=== PATIENT | female | born 1950 | race Caucasian/White ===

== ENCOUNTER 2016-05-22 08:28 | Emergency (ER) | payer OTHER, MEDICARE ==
--- NOTE | 2016-05-22 08:47 | PDOC ---
History of Present Illness - General Chief Complaint: Constipation Stated Complaint: CONSTIPATION Time Seen by Provider: 05/22/16 08:41 History Source: Patient, Old Records Exam Limitations: No Limitations - History of Present Illness Initial Comments: 05/22/16 08:45 65-year-old female with history of COPD, hypertension and recent admission to [facility] for COPD exacerbation who presents the emergency department with constipation 4 days. The patient states that she has had constipation in the past and has taken Miracel and other fiber dietary supplements with success but this has not been successful for her at this time. The patient had a small bowel movement 2 days ago. The patient complains of pain in the rectal area and states that the stool is at the anal verge but she cannot push the stool out. The patient denies abdominal pain, nausea or vomiting. All other review of systems are negative. She denies fevers, chills, complaints. Past History - Travel Traveled outside of the country in the last 30 days: No Close contact w/someone who was outside of country & ill: No - Past Medical History Allergies/Adverse Reactions: Allergies Allergy/AdvReac Type Severity Reaction Status Date / Time amlodipine Allergy Severe Difficulty Verified 05/22/16 08:45 Breathing cortisone Allergy Severe Difficulty Verified 05/22/16 08:45 Breathing levofloxacin [From Levaquin] Allergy Intermediate Rash Verified 05/22/16 08:45 Penicillins Allergy Intermediate Rash Verified 05/22/16 08:45 aspirin AdvReac Severe Verified 05/22/16 08:45 Home Medications: Ambulatory Orders Budesonide [Pulmicort Flexhaler] 90 mcg IH BID 02/25/15 Hydrochlorothiazide [Hctz -] 25 mg PO DAILY 02/25/15 Methylprednisolone [Medrol Dose Alessandro] 4 mg PO ASDIR 02/25/15 Valsartan [Diovan] 320 mg PO DAILY 02/25/15 Zafirlukast [Accolate] 20 mg PO BID 02/25/15 Anemia: Yes (THALLASEMIA MINOR) Asthma: Yes GI Disorders: Yes (GERD) HTN: Yes - Surgical History Cholecystectomy: Yes (1968) - Psycho/Social/Smoking Cessation Hx Anxiety: Yes Suicidal Ideation: No Smoking History: Unknown if ever smoked If you are a former smoker, when did you quit?: 25 YEARS AGO Hx Alcohol Use: Yes (SOCIAL) Drug/Substance Use Hx: No Substance Use Type: None Review of Systems - Review of Systems Able to Perform ROS?: Yes Is the patient limited [place]an proficient: No Constitutional: No: Symptoms Reported, See HPI, Chills, Diaphoresis, Fever, Loss of Appetite, Malaise, Night Sweats, Weakness, Weight Stable, Unintentional Wgt. Loss, Unexplained wgt Loss, Other HEENTM: No: Symptoms Reported, See HPI, Eye Pain, Blurred Vision, Tearing, Recent change in vision, Double Vision, Cataracts, Ear Pain, Ocular Prothesis, Ear Discharge, Nose Pain, Nose Congestion, Tinnitus, Nose Bleeding, Hearing Loss , Throat Pain, Throat Swelling, Mouth Pain, Dental Problems, Difficulty Swallowing, Mouth Swelling, Other Respiratory: Yes: Cough, Wheezing Cardiac (ROS): No: Symptoms Reported, See HPI, Chest Pain, Edema, Irregular Heart Rate, Lightheadedness, Palpitations, Syncope, Chest Tightness, Other ABD/GI: Yes: Constipated. No: Abdominal Distended, Abd. Pain w/ defecation : No: Symptoms Reported, See HPI, Burning, Dysuria, Discharge, Frequency, Flank Pain, Hematuria, Incontinence, Pain, Urgency, Lesions, Other Musculoskeletal: No: Symptoms Reported, See HPI, Back Pain, Gout, Joint Pain, Joint Swelling, Muscle Pain, Muscle Weakness, Neck Pain, Joint Stiffness, Other Integumentary: No: Symptoms Reported, See HPI, Bruising, Change in Color, Change in Hair/Nails, Dryness, Erythema, Flushing, Lesions, Lumps, Pallor, Pruritus, Rash, Sweating, Other *Physical Exam - Physical Exam Comments: 05/22/16 08:42 GENERAL: Well developed, well nourished. Awake and alert. Mild distress. NECK: Supple. Full ROM. No JVD. No lymphadenopathy. CARDIOVASCULAR: Regular rate and rhythm. No murmurs, rubs, or gallops. Distal pulses are 2+ and symmetric. PULMONARY: No evidence of respiratory distress. There is good air entry with by basilar expiratory wheezes. ABDOMINAL: Soft. Non-tender. Non-distended. No rebound or guarding. No organomegaly. Normoactive bowel sounds. MUSCULOSKELETAL Normal range of motion at all joints. No bony deformities or tenderness. No CVA tenderness. EXTREMITIES: No cyanosis. No clubbing. No edema. No calf tenderness. RECTAL: There is brown stool at the anal verge that is soft. The stool is heme negative. SKIN: Warm and dry. Normal capillary refill. No rashes. No jaundice. NEUROLOGICAL: Alert, awake, appropriate. Cranial nerves 2-12 intact. Grossly non-focal exam. PSYCHIATRIC: Cooperative. Good eye contact. Appropriate mood and affect. Medical Decision Making - Medical Decision Making 05/22/16 08:43 65-year-old female with history of COPD, hypertension who presents to the emergency department with constipation 4 days and fecal impaction. Plan: 1. Fleets enema 2. Will attempt manual disimpaction 3. Pain management 4. Dietary counseling 5. Observe and reevaluate 05/22/16 10:37 Addendum: The patient received 2 fleets enemas with a significant bowel movement in the emergency department and she is feeling improved. We'll discharge the patient home. I have given the patient dietary counseling and have instructed her to increase her dietary fiber as well as take Miracil as it has worked for her in the past. I have also instructed her to follow-up with her decal decorator that just within one week. I've also instructed the patient to return to the emergency department if her symptoms persist, worsen, or new symptoms arise. *DC/Admit/Observation/Transfer Diagnosis at time of Disposition: Constipation - Discharge Dispostion Disposition: HOME Condition at time of disposition: Stable Admit: No - Patient Instructions Printed Discharge Instructions: DI for Constipation, Increased Dietary Fiber May Improve Constipation Conditions With Pelvic Jake Additional Instructions: Follow up with your decal decorator within one week. Increase the amount of dietary fiber in your food regimen: Fruits (including aplles, pears and prunes) , and other [id number] fiber supplements. Also increase the amount of water that you or drinking in order to keep well-hydrated. Return to the emergency department if your symptoms persist, worsen, or new symptoms arise.
[2016-05-22 08:52] VITALS: BP 161/94; PULSE 94; TEMP 97.8; BMI 32.8
== END 2016-05-22 10:53 | disposition home or self-care (01) ==
LOC: FER 08:28
DX: K59.00 Constipation, unspecified (principal); J44.9 Chronic obstructive pulmonary disease, unspecified; I10 Essential (primary) hypertension; D56.3 Thalassemia minor; J45.909 Unspecified asthma, uncomplicated; K21.9 Gastro-esophageal reflux disease without esophagitis; Z87.891 Personal history of nicotine dependence
CPT/HCPCS: 99282-25

== ENCOUNTER 2018-07-19 22:17 | Observation (INO) | payer OTHER, MEDICARE ==
--- NOTE | 2018-07-19 22:45 | PDOC ---
History of Present Illness - General Chief Complaint: Lightheaded Stated Complaint: DIZZY Time Seen by Provider: 07/19/18 22:42 History Source: Patient Exam Limitations: No Limitations - History of Present Illness Initial Comments: 07/19/18 23:51 chest tightness x 4 hours, "elephant paw on my chest" dizziness, at rest, felt "uncoordinated", has had this before but not this severe, resolved spontaneously Timing/Duration: 4-6 hours Severity: moderate Modifying Factors: worse with: medication, movement, rest Associated Symptoms: reports: chest pain, malaise. denies: cough, diaphoresis, fever/chills, headaches, loss of appetite, nausea/vomiting Past History - Past Medical History Allergies/Adverse Reactions: Allergies Allergy/AdvReac Type Severity Reaction Status Date / Time amlodipine Allergy Severe Difficulty Verified 07/19/18 22:30 Breathing cortisone Allergy Severe Difficulty Verified 07/19/18 22:30 Breathing levofloxacin [From Levaquin] Allergy Intermediate Rash Verified 07/19/18 22:30 Penicillins Allergy Intermediate Rash Verified 07/19/18 22:30 aspirin AdvReac Severe Verified 07/19/18 22:30 CONTRAST DYE Allergy Uncoded 07/19/18 22:30 Home Medications: Ambulatory Orders Budesonide [Pulmicort Flexhaler] 90 mcg IH BID 02/25/15 Hydrochlorothiazide [Hctz -] 25 mg PO DAILY 02/25/15 Valsartan [Diovan] 320 mg PO DAILY 02/25/15 Zafirlukast [Accolate] 20 mg PO BID 02/25/15 Anemia: Yes (THALLASEMIA MINOR) Asthma: Yes GI Disorders: Yes (GERD) HTN: Yes Comment:: 07/19/18 23:53 relasping/ remitting MS, off meds, baseline symptomotology: unsteadiness - Surgical History Cholecystectomy: Yes (1968) - Suicide/Smoking/Psychosocial Hx Smoking History: Unknown if ever smoked Have you smoked in the past 12 months: No If you are a former smoker, when did you quit?: 25 YEARS AGO Hx Alcohol Use: Yes (SOCIAL) Drug/Substance Use Hx: No Substance Use Type: None Review of Systems - Review of Systems All Other Systems: Reviewed and Negative *Physical Exam - Physical Exam General Appearance: Yes: Nourished, Appropriately Dressed HEENT: positive: EOMI, COREY, Normal Voice. negative: Scleral Icterus (R), Scleral Icterus (L) Neck: negative: Tender, Lymphadenopathy (R), Lymphadenopathy (L), Rigidity Respiratory/Chest: positive: Lungs Clear, Normal Breath Sounds. negative: Respiratory Distress, Wheezing Cardiovascular: positive: Regular Rhythm. negative: Murmur Gastrointestinal/Abdominal: positive: Normal Bowel Sounds. negative: Tenderness Lymphatic: negative: Adenopathy Musculoskeletal: positive: Normal Inspection Extremity: positive: Normal Capillary Refill, Normal Inspection Neurologic: positive: account installation specialist II-XII NML intact, Fully Oriented, Alert, Normal Mood/ Affect, Normal Response, Motor Strength 5/5, Respond to painful stimul, Responsive, Other (nl strength and coordination in 4 ext). negative: Abnormal Cranial NS, Facial Droop, Numbness, Sensory Deficit ED Treatment Course - LABORATORY CBC & Chemistry Diagram: 07/19/18 11:05 07/19/18 11:05 Medical Decision Making - Medical Decision Making 07/19/18 23:21 sinus at 58, nl axis, nl intervals, no ischemic findings 07/19/18 23:56 cxr: jose, as read by me head CT: wet read - a/p chest tightness: heart 4, ekg, troponin ok, admit for fly and cardiac risk stratification dizziness: concern for posterior circulation TIA, head CT -; inpt MRi *DC/Admit/Observation/Transfer Diagnosis at time of Disposition: ACS (acute coronary syndrome), Dizziness - Discharge Dispostion Condition at time of disposition: Stable Decision to Admit order: Yes - Referrals - Patient Instructions - Post Discharge Activity
[2018-07-19 23:18] LABS: BASO % 1.3 % (0-2.0); HEMATOCRIT 33.8 % (32.4-45.2); HEMOGLOBIN 10.4 GM/dl (10.7-15.3); MCHC 30.7 g/dl (32.0-36.0); MEAN CELL VOLUME 68.4 fl (80-96); MEAN PLT VOLUME 8.6 fl (7.5-11.1); MONO % 8.3 % (3.8-10.2); NEUT % 45.4 % (42.8-82.8); PLATELET COUNT 344 K/MM3 (134-434); RBC 4.94 M/mm3 (3.60-5.2); RDW 16.6 % (11.6-15.6)
[2018-07-19 23:32] LABS: ADD RBC MORPHOLOGY YES
[2018-07-19 23:33] LABS: ANISOCYTOSIS 1+
[2018-07-19 23:37] LABS: ALBUMIN 3.7 g/dl (3.4-5.0); ALK PHOS 50 U/L (45-117); ANION GAP 12 MMOL/L (8-16); BILIRUBIN,TOTAL 0.8 mg/dl (0.2-1); BLOOD UREA NITROGEN 18 mg/dl (7-18); CHLORIDE 100 mmol/L (98-107); CO2 24 mmol/L (21-32); CREATININE 0.7 mg/dl (0.55-1.3); GLUCOSE,RANDOM 109 mg/dl (74-106); POTASSIUM 3.5 mmol/L (3.5-5.1); SGOT/AST 23 U/L (15-37); SGPT/ALT 18 U/L (13-61); SODIUM 136 mmol/L (136-145); TOT PROT 6.4 g/dl (6.4-8.2)
[2018-07-20] MEDS ORDERED: ALBUTEROL SO4 8 GM HFA INHALER IH PRN (00:20)
[2018-07-20 01:16] VITALS: BMI 33.6
[2018-07-20 08:29] LABS: INR 1.05 (0.82-1.09); PROTHROMBIN TIME (PATIENT) 11.7 SEC (10.2-13.0)
[2018-07-20 08:30] LABS: BASO % 0.5 % (0-2.0); EOS % 4.1 % (0-4.5); HEMATOCRIT 32.2 % (32.4-45.2); HEMOGLOBIN 9.9 GM/dl (10.7-15.3); LYMPH % 40.3 % (8-40); MCH 21.6 pg (25.7-33.7); MCHC 30.9 g/dl (32.0-36.0); MEAN CELL VOLUME 69.8 fl (80-96); MEAN PLT VOLUME 8.7 fl (7.5-11.1); MONO % 8.2 % (3.8-10.2); NEUT % 46.9 % (42.8-82.8); PLATELET COUNT 315 K/MM3 (134-434); RBC 4.62 M/mm3 (3.60-5.2); RDW 15.5 % (11.6-15.6); WHITE BLOOD COUNT 7.5 K/mm3 (4.0-10.8)
[2018-07-20 08:40] LABS: ANION GAP 10 MMOL/L (8-16); BLOOD UREA NITROGEN 16 mg/dl (7-18); CALCIUM 8.7 mg/dl (8.5-10); CHLORIDE 100 mmol/L (98-107); CO2 26 mmol/L (21-32); CREATININE 0.6 mg/dl (0.55-1.3); GLUCOSE,RANDOM 99 mg/dl (74-106); MAGNESIUM 2.1 mg/dL (1.8-2.4); POTASSIUM 3.7 mmol/L (3.5-5.1); SODIUM 136 mmol/L (136-145)
--- NOTE | 2018-07-20 08:54 | HP ---
CHIEF COMPLAINT: Chest discomfort and vertigo PCP: Dr. Radha Wilson [facility] Neuro: Dr. Meir Cruz [facility] HISTORY OF PRESENT ILLNESS: 67 year-old female with a PMH significant for HTN, asthma, thalassemia, multiple sclerosis relapsing/remitting on no medication, and GERD. Patient reports a stressful time in her life, in process of selling home, yesterday was a scheduled open house. Awoke with a feeling of chest tightness. Patient was able to carry out her daily activities. Patient changed her chronic asthma inhaler about 2 weeks ago and has noticed more frequent "bronchospasms" than usual. There was no associated SOB, ROA, diaphoresis, or presyncope with the chest tightness. In addition, last night, after the open house, patient was watching TV with her when she developed room-spinning vertigo. Patient' s last episode of vertigo was 20 years ago which was associated with her MS. Patient's activated EMS. Patient states the vertigo continued throughout her time in the ED, and began to resolve when she was admitted to the floor. The vertigo is completely resolved this morning. Patient last saw her neurologist, Dr. Meir Cruz, 6 months ago and has an upcoming appointment. ER course was notable for: (1) BP 175/69 (2) Trop neg x 1 Recent Travel: No PAST MEDICAL HISTORY: Hypertension Multiple sclerosis, relapsing remitting Asthma Thalassemia GERD PAST SURGICAL HISTORY: Cholecystectomy Social History: Smoking: quit 25 years ago Alcohol: social Drugs: no Family History: Allergies amlodipine Allergy (Severe, Verified 07/19/18 22:30) Difficulty Breathing DELAYED REACTION cortisone Allergy (Severe, Verified 07/19/18 22:30) Difficulty Breathing levofloxacin [From Levaquin] Allergy (Intermediate, Verified 07/19/18 22:30) Rash Penicillins Allergy (Intermediate, Verified 07/19/18 22:30) Rash aspirin Adverse Reaction (Severe, Verified 07/19/18 22:30) WEAKNESS CONTRAST DYE Allergy (Uncoded 07/19/18 22:30) HOME MEDICATIONS: Home Medications Medication Instructions Recorded Hydrochlorothiazide [Hctz -] 25 mg PO DAILY 02/25/15 Valsartan [Diovan] 320 mg PO DAILY 02/25/15 Zafirlukast [Accolate] 20 mg PO BID 02/25/15 Fluticasone Propionate [Flovent 250 mcg IH BID 07/20/18 Diskus] REVIEW OF SYSTEMS CONSTITUTIONAL: Absent: fever, chills, diaphoresis, generalized weakness, malaise, loss of appetite, weight change HEENT: Absent: rhinorrhea, nasal congestion, throat pain, throat swelling, difficulty swallowing, mouth swelling, ear pain, eye pain, visual changes CARDIOVASCULAR: Absent: chest pain, syncope, palpitations, irregular heart rate, lightheadedness , peripheral edema RESPIRATORY: +chest tightness Absent: cough, shortness of breath, dyspnea with exertion, orthopnea, wheezing, stridor, hemoptysis GASTROINTESTINAL: Absent: abdominal pain, abdominal distension, nausea, vomiting, diarrhea, constipation, melena, hematochezia GENITOURINARY: Absent: dysuria, frequency, urgency, hesitancy, hematuria, flank pain, genital pain MUSCULOSKELETAL: Absent: myalgia, arthralgia, joint swelling, back pain, neck pain SKIN: Absent: rash, itching, pallor HEMATOLOGIC/IMMUNOLOGIC: Absent: easy bleeding, easy bruising, lymphadenopathy, frequent infections ENDOCRINE: Absent: unexplained weight gain, unexplained weight loss, heat intolerance, cold intolerance NEUROLOGIC: +vertigo Absent: headache, focal weakness or paresthesias, dizziness, unsteady gait, seizure, mental status changes, bladder or bowel incontinence PSYCHIATRIC: Absent: anxiety, depression, suicidal or homicidal ideation, hallucinations. PHYSICAL EXAMINATION Vital Signs - 24 hr 07/19/18 07/19/18 07/20/18 22:32 23:57 00:00 Temperature 97.4 F L 97.5 F L 97.5 F L Pulse Rate 66 82 Pulse Rate [ Left side Sitting] Pulse Rate [ Left side Standing] Pulse Rate [ Left side Supine] Pulse Rate [ 58 L Left] Respiratory 16 16 16 Rate Blood Pressure 175/69 H 182/56 H Blood Pressure [Left side Sitting] Blood Pressure [Left side Standing] Blood Pressure [Left side Supine] Blood Pressure 154/56 L [Right] O2 Sat by Pulse 100 100 96 Oximetry (%) 07/20/18 07/20/18 07/20/18 00:05 00:17 04:00 Temperature 97.5 F L Pulse Rate 82 62 Pulse Rate [ 82 Left side Sitting] Pulse Rate [ 81 Left side Standing] Pulse Rate [ 78 Left side Supine] Pulse Rate [ Left] Respiratory 16 20 Rate Blood Pressure 182/56 H Blood Pressure 182/56 H [Left side Sitting] Blood Pressure 183/70 H [Left side Standing] Blood Pressure 177/82 H [Left side Supine] Blood Pressure [Right] O2 Sat by Pulse 96 Oximetry (%) GENERAL: Awake, alert, and fully oriented, in no acute distress. EYES: Pupils equal, round and reactive to light, extraocular movements intact, sclera anicteric, conjunctiva clear. No lid lag. EARS, NOSE, THROAT: Ears normal, nares patent, oropharynx clear without exudates. Moist mucous membranes. NECK: Normal range of motion, supple without lymphadenopathy, JVD, or masses. LUNGS: Breath sounds equal, clear to auscultation bilaterally. No wheezes, and no crackles. No accessory muscle use. HEART: Regular rate and rhythm, normal S1 and S2 ABDOMEN: Soft, nontender, not distended MUSCULOSKELETAL: Normal range of motion at all joints. No bony deformities or tenderness. No CVA tenderness. UPPER EXTREMITIES: 2+ pulses, warm, well-perfused. No cyanosis. No clubbing. No peripheral edema. LOWER EXTREMITIES: 2+ pulses, warm, well-perfused. No calf tenderness. No peripheral edema. NEUROLOGICAL: Cranial nerves II-XII intact. Normal speech. SKIN: Warm, dry, normal turgor Laboratory Results - last 24 hr 07/19/18 07/19/18 07/19/18 11:05 11:05 23:15 WBC 9.0 RBC 4.94 Hgb 10.4 L Hct 33.8 MCV 68.4 L MCH 21.0 L MCHC 30.7 L RDW 16.6 H Plt Count 344 MPV 8.6 Absolute Neuts (auto) 4.1 Neutrophils % 45.4 Lymphocytes % 41.0 H Monocytes % 8.3 Eosinophils % 4.0 Basophils % 1.3 Hypochromia 3+ Anisocytosis 1+ Microcytosis 2+ PT with INR INR Sodium 136 Potassium 3.5 Chloride 100 Carbon Dioxide 24 Anion Gap 12 BUN 18 Creatinine 0.7 Creat Clearance w eGFR > 60 Random Glucose 109 H Calcium 9.0 Phosphorus Magnesium Total Bilirubin 0.8 AST 23 ALT 18 Alkaline Phosphatase 50 Troponin I < 0.03 Total Protein 6.4 Albumin 3.7 Triglycerides Cholesterol Total LDL Cholesterol HDL Cholesterol 07/20/18 07/20/18 07/20/18 07:00 07:00 07:00 WBC 7.5 RBC 4.62 Hgb 9.9 L Hct 32.2 L MCV 69.8 L MCH 21.6 L MCHC 30.9 L RDW 15.5 Plt Count 315 MPV 8.7 Absolute Neuts (auto) 3.6 Neutrophils % 46.9 Lymphocytes % 40.3 H Monocytes % 8.2 Eosinophils % 4.1 Basophils % 0.5 Hypochromia Anisocytosis Microcytosis PT with INR INR Sodium 136 Potassium 3.7 Chloride 100 Carbon Dioxide 26 Anion Gap 10 BUN 16 Creatinine 0.6 Creat Clearance w eGFR > 60 Random Glucose 99 Calcium 8.7 Phosphorus 4.0 Magnesium 2.1 Total Bilirubin AST ALT Alkaline Phosphatase Troponin I Total Protein Albumin Triglycerides 59 Cholesterol 155 Total LDL Cholesterol 92 HDL Cholesterol 51 07/20/18 07:00 WBC RBC Hgb Hct MCV MCH MCHC RDW Plt Count MPV Absolute Neuts (auto) Neutrophils % Lymphocytes % Monocytes % Eosinophils % Basophils % Hypochromia Anisocytosis Microcytosis PT with INR 11.7 INR 1.05 Sodium Potassium Chloride Carbon Dioxide Anion Gap BUN Creatinine Creat Clearance w eGFR Random Glucose Calcium Phosphorus Magnesium Total Bilirubin AST ALT Alkaline Phosphatase Troponin I Total Protein Albumin Triglycerides Cholesterol Total LDL Cholesterol HDL Cholesterol ASSESSMENT/PLAN: 67 year-old female with a PMH significant for HTN, asthma, thalassemia, multiple sclerosis relapsing/remitting on no medication, and GERD. Placed on observation for chest tightness and an episode of vertigo. Chest tightness Asthma --likely respiratory etiology, has had worsening symptoms since changing from Pulmicort (had been on x 15 years) to Flovent two weeks ago; patient has discussed with her PCP Dr. Wilson who has called in new script for Pulmicort and will see patient tomorrow in office --seen and evaluated by cardiology: serial troponins negative; ECG normal; echo: LV systolic function normal, EF 60-65%, grade I diastolic dysfunction; RV normal; mild MR; mild AI; CXR unremarkable for acute pathology; no further cardiac workup --afebrile, no leukocytosis, no sign of infection --musculoskeltal etiology also possible; has been cleaning and preparing house for sale, increased physical activity Hypertension --BP initially elevated but improved --continue valsartan and HCTZ Vertigo Multiple sclerosis, relapsing, remitting --CT head no acute pathology; not orthostatic --last episode was 20 years ago associated with MS, verified by Dr. Cruz, patient's neurologist x 35 years; most recent MRI was October 2017 which showed moderately advanced MS, quiescent, stable; Dr. Cruz will follow as outpatient GERD --not on meds Thalassemia --h/h stable Visit type - Emergency Visit Emergency Visit: Yes ED Registration Date: 07/20/18 Care time: The patient presented to the Emergency Department on the above date and was hospitalized for further evaluation of their emergent condition. - New Patient This patient is new to me today: Yes Date on this admission: 07/20/18 - Critical Care Critical Care patient: No
--- NOTE | 2018-07-20 09:38 | CON.CARD ---
Consult Consult Specialty:: cardio - History of Present Illness Chief Complaint: cp History of Present Illness: 67 F with chest heaviness and dizziness on DOA. pt changed chronic asthma inhaler to a cheaper alternative 2 wks ago. since then incr frequency of her very typical "bronchospasms" that she's had when tapering steroids in past: discomfort more in R chest than left. happening very often, no different on day of admission. no associated diaph or presyncope with these episodes. has appt with pulm tomorrow to discuss MDI options. has had vertigo in the past--was presenting sx when she was diagnosed with MS. yest saw movie with with lots of visual motion of images--began feeling mild, subtle dysequilibrium feelings. later that night sitting on couch with , sudden severe vertigo--room visually spinning. also feels she was LH and presyncopal after onset of vertigo. denies any other new neuro deficit associated. now back to her normal baseline. not orthostatic here. no palpitations, syncope PMH: HTN reactive airways dz mult sclerosis - Past Medical History ...: No - Alcohol/Substance Use Hx Alcohol Use: Yes (SOCIAL) - Smoking History Smoking history: Former smoker Have you smoked in the past 12 months: No If you are a former smoker, when did you quit?: 25 YEARS AGO Home Medications - Allergies Allergies/Adverse Reactions: Allergies Allergy/AdvReac Type Severity Reaction Status Date / Time amlodipine Allergy Severe Difficulty Verified 07/19/18 22:30 Breathing cortisone Allergy Severe Difficulty Verified 07/19/18 22:30 Breathing levofloxacin [From Levaquin] Allergy Intermediate Rash Verified 07/19/18 22:30 Penicillins Allergy Intermediate Rash Verified 07/19/18 22:30 aspirin AdvReac Severe Verified 07/19/18 22:30 CONTRAST DYE Allergy Uncoded 07/19/18 22:30 - Home Medications Home Medications: Ambulatory Orders Hydrochlorothiazide [Hctz -] 25 mg PO DAILY 02/25/15 Valsartan [Diovan] 320 mg PO DAILY 02/25/15 Zafirlukast [Accolate] 20 mg PO BID 02/25/15 Fluticasone Propionate [Flovent Diskus] 250 mcg IH BID 07/20/18 Family Disease History - Family Disease History Family History: Denies (no known cmp) Review of Systems - Review of Systems Constitutional: denies: Chills, Fever Eyes: denies: Eye Pain HENT: denies: Nasal Congestion Neck: denies: Stiffness Cardiovascular: denies: Palpitations Respiratory: denies: Orthopnea, PND Gastrointestinal: denies: Diarrhea, Rectal Bleeding Genitourinary: denies: Burning, Hematuria Musculoskeletal: denies: Muscle Pain Integumentary: denies: Rash Neurological: denies: Numbness, Seizure, Syncope Endocrine: denies: Excessive Sweating Hematology/Lymphatic: denies: Excessive Bleeding Vital Signs: Vital Signs Temperature 98.4 F 07/20/18 08:59 Pulse Rate 70 07/20/18 08:59 Respiratory Rate 18 07/20/18 09:03 Blood Pressure 149/67 07/20/18 08:59 O2 Sat by Pulse Oximetry (%) 96 07/20/18 09:03 Constitutional: Yes: Well Nourished, No Distress Eyes: No: Sclera Icterus HENT: No: Nasal Congestion Neck: No: Decreased ROM Respiratory: Yes: CTA Bilaterally. No: Accessory Muscle Use, Rales, Wheezes Gastrointestinal: Yes: Normal Bowel Sounds. No: Distention, Hepatomegaly, Palpable Mass, Tenderness Cardiovascular: Yes: Regular Rate and Rhythm JVD: No Carotid Bruit: No PMI: Non-Displaced Heart Sounds: Yes: S1, S2. No: Gallop Murmur: No: Systolic Murmur, Diastolic Murmur Musculoskeletal: Yes: Other (No kyphosis) Extremities: No: Cool, Cyanosis Edema: No Peripheral Pulses: 2+ Left Carotid, 2+ Right Carotid, 2+ Left Doralis Pedis, 2+ Right Dorsalis Pedis Integumentary: No: Jaundice Neurological: Yes: Alert, Oriented (x3) Psychiatric: No: Agitated - Other Data Labs, Other Data: CBC, BMP 07/20/18 07:00 07/20/18 07:00 INR, PTT INR 1.05 (0.82-1.09) 07/20/18 07:00 Troponin, BNP 07/19/18 07/20/18 23:15 06:50 Troponin I < 0.03 < 0.03 Troponin, BNP 07/19/18 07/20/18 23:15 06:50 Troponin I < 0.03 < 0.03 Laboratory Tests 07/19/18 07/19/18 07/20/18 11:05 23:15 06:50 WBC Hgb MCV Plt Count Sodium Potassium Carbon Dioxide BUN Creatinine AST 23 ALT 18 Troponin I < 0.03 < 0.03 Triglycerides Cholesterol Total LDL Cholesterol HDL Cholesterol 07/20/18 07/20/18 07/20/18 07:00 07:00 07:00 WBC 7.5 Hgb 9.9 L MCV 69.8 L Plt Count 315 Sodium 136 Potassium 3.7 Carbon Dioxide 26 BUN 16 Creatinine 0.6 AST ALT Troponin I Triglycerides 59 Cholesterol 155 Total LDL Cholesterol 92 HDL Cholesterol 51 Assessment/Plan ECG: NSR, normal intervals, no pathological q waves or ST-T abn CXR: clear lungs/pleura CT head: no acute stroke, bleed, or other pathology. "chronic ischemic changes" tele: NSR, no events chest pain: -sx's typical of her longstanding bronchospasm sx's. began 2 wks ago as soon as her longstanding inhaler was switched to cheaper alternative -troponin neg x 2 -ECG normal -no further w/u indicated vertigo: -describes typical vertigo sx's, though triggered sensation of LH/presyncope ( note: not uncommon to have this sensation during vertigo in some pts) -no other assctd neuro deficits, CT head no acute pathology -pt with known MS, initial sx was vertigo -not orthostatic here -no sx's suggestic cardiac arrhythmia or other cardiogenic cause -no further cardiac w/u indicated-->? neuro c/s to rule out posterior circulation TIA (per dr hobbs) HTN: -on hctz at home -bp's not controlled here, ? reactive due to anxiety-provoking sx's -observe trend on home meds for now -prefer outpt f/u with pmd > changing meds here, if reasonably controlled anemia: -hgb 9s-10s, ? baseline -low MCV -? iron deficiency/bleeding w/u--per hospitalist -? thalassemia trait -do not think this degree of anemia is causing dizziness
[2018-07-20] MEDS ORDERED: VALSARTAN 160 MG TABLET (UD) PO SCH (10:00)
--- NOTE | 2018-07-20 10:42 | EKG ---
Test Reason : Blood Pressure : / mmHG Vent. Rate : 058 BPM Atrial Rate : 058 BPM P-R Int : 176 ms QRS Dur : 078 ms QT Int : 440 ms P-R-T Axes : 114 014 036 degrees QTc Int : 431 ms SINUS BRADYCARDIA OTHERWISE NORMAL ECG NO PREVIOUS ECGS AVAILABLE Confirmed by MATHIEU SWAN MD ([id number]) on 07/20/2018 10:41:56 AM Referred By: DR CASTRO Confirmed By:MATHIEU SWAN MD
[2018-07-20] MEDS ORDERED: HYDROCHLOROTHIAZIDE 25 MG TABLET (FP) PO SCH (11:30)
--- NOTE | 2018-07-20 12:52 | ECHO ---
Name: ISACC RUIZ Exam:Adult Echocardiogram Study Date: 07/20/2018 07:38 AM Age: 67 yrs Reason For Study: VERTIGO Height: 63 in Weight: 190 lb BSA: 1.9 m2 MMode/2D Measurements & Calculations IVSd: 0.73 cm Ao root diam: 2.9 cm LVIDd: 4.3 cm LA dimension: 2.8 cm LVIDs: 2.9 cm LVPWd: 0.91 cm EDV(Teich): 81.6 ml LVOT diam: 2.1 cm ESV(Teich): 31.3 ml Doppler Measurements & Calculations MV E max hudson: 85.8 cm/sec Ao V2 max: 162.0 cm/sec MV A max hudson: 107.4 cm/sec Ao max P.5 mmHg MV E/A: 0.80 Ao V2 mean: 117.5 cm/sec Ao mean P.1 mmHg Ao V2 VTI: 45.5 cm DWAYNE(I,D): 2.6 cm2 DWAYNE(V,D): 2.5 cm2 LV V1 max P.7 mmHg SV(LVOT): 116.9 ml LV V1 mean P.7 mmHg LV V1 max: 119.0 cm/sec LV V1 mean: 77.4 cm/sec LV V1 VTI: 33.8 cm TR max hudson: 210.0 cm/sec TR max P.6 mmHg Procedure A complete two-dimensional transthoracic echocardiogram was performed (2D, M-mode, Doppler and color flow Doppler). Left Ventricle The left ventricle is normal in size. Left ventricular systolic function is normal. Ejection Fraction = 60- 65%. Grade I diastolic dysfunction, (abnormal relaxation pattern). Ratio E/E'= 13. No regional wall m otion abnormalities noted. Right Ventricle The right ventricle is normal size. The right ventricular systolic function is normal. RV systolic TD I is 14 cm/s. Atria The left atrial size is normal. Right atrial size is normal. Mitral Valve The mitral valve is normal in structure and function. There is no mitral regurgitation noted. Tricuspid Valve The tricuspid valve is normal in structure and function. There is mild tricuspid regurgitation. Right ventricular systolic pressure is normal. Aortic Valve The aortic valve is normal in structure and function. Mild aortic regurgitation. Pulmonic Valve The pulmonic valve is not well visualized. Great Vessels The aortic root is normal size. Pericardium/Pleura There is no pericardial effusion. Interpretation Summary The left ventricle is normal in size. Left ventricular systolic function is normal. No regional wall motion abnormalities noted. Ejection Fraction = 60-65%. Grade I diastolic dysfunction, (abnormal relaxation pattern). Ratio E/E'= 13 c/w normal filling pressure The right ventricular systolic function is normal. The left atrial size is normal. Right atrial size is normal. There is mild tricuspid regurgitation. Right ventricular systolic pressure is normal. Mild aortic regurgitation. There is no pericardial effusion. Previous study is not available for comparison Yogi Elizabeth MD 07/20/2018 12:51 PM
[2018-07-20 14:10] VITALS: BP 140/63; PULSE 77; TEMP 98.1
--- NOTE | 2018-07-20 17:14 | CON.NEURO ---
Consult Consult Specialty:: [facility] Referred by:: ER Reason for Consultation:: MS - History of Present Illness History of Present Illness: 67-year-old right-handed female patient with history of Coronary artery disease Bronchial asthma Osteoarthritis Relapsing remitting multiple sclerosis on no immune modulator Follows up with neurologist in [place] Last MRI was 2017 Patient presented to the hospital with chest pain. - Past Medical History ...: No - Alcohol/Substance Use Hx Alcohol Use: Yes (SOCIAL) - Smoking History Smoking history: Former smoker Have you smoked in the past 12 months: No If you are a former smoker, when did you quit?: 25 YEARS AGO Home Medications - Allergies Allergies/Adverse Reactions: Allergies Allergy/AdvReac Type Severity Reaction Status Date / Time amlodipine Allergy Severe Difficulty Verified 07/19/18 22:30 Breathing cortisone Allergy Severe Difficulty Verified 07/19/18 22:30 Breathing levofloxacin [From Levaquin] Allergy Intermediate Rash Verified 07/19/18 22:30 Penicillins Allergy Intermediate Rash Verified 07/19/18 22:30 aspirin AdvReac Severe Verified 07/19/18 22:30 CONTRAST DYE Allergy Uncoded 07/19/18 22:30 - Home Medications Home Medications: Ambulatory Orders Hydrochlorothiazide [Hctz -] 25 mg PO DAILY 02/25/15 Valsartan [Diovan] 320 mg PO DAILY 02/25/15 Zafirlukast [Accolate] 20 mg PO BID 02/25/15 Physical Exam-Neuro Vital Signs: Vital Signs Temperature 98.1 F 07/20/18 14:09 Pulse Rate 77 07/20/18 14:09 Respiratory Rate 16 07/20/18 14:09 Blood Pressure 140/63 07/20/18 14:09 O2 Sat by Pulse Oximetry (%) 96 07/20/18 09:03 Labs: CBC, BMP 07/20/18 07:00 07/20/18 07:00 INR, PTT INR 1.05 (0.82-1.09) 07/20/18 07:00
[2018-07-21] MEDS ORDERED: ENOXAPARIN NA (PORCINE) 40 MG/0.4 ML DISP.SYRIN SQ SCH (10:00)
== END 2018-07-20 17:19 | disposition home or self-care (01) ==
LOC: FER 22:17 → FM/S 07-20 00:01 → UNDOADMOB 07-20 00:05 → FM/S 07-20 00:05
PROVIDERS: ADMIT Internal Medicine; ATTEND Nurse Practitioner Acute Care
DX: R07.89 Other chest pain (principal); I24.9 Acute ischemic heart disease, unspecified; R42 Dizziness and giddiness; I10 Essential (primary) hypertension; K21.9 Gastro-esophageal reflux disease without esophagitis; I25.10 Atherosclerotic heart disease of native coronary artery without angina pectoris; D56.3 Thalassemia minor; J45.909 Unspecified asthma, uncomplicated; M19.90 Unspecified osteoarthritis, unspecified site; Z88.0 Allergy status to penicillin; Z88.1 Allergy status to other antibiotic agents; Z88.6 Allergy status to analgesic agent; G35 Multiple sclerosis; Z87.891 Personal history of nicotine dependence
CPT/HCPCS: 36415; 70450-TC; 71046-TC-FY; 80048; 80053; 80061; 83735; 84100; 84443; 84484; 85025; 85610; 93005; 93306-TC; 99285-25; G0378

== ENCOUNTER 2019-03-20 22:10 | Emergency (ER) | payer OTHER, MEDICARE ==
[2019-03-20 22:16] VITALS: BP 176/100; PULSE 77; TEMP 97.8; BMI 33.5
--- NOTE | 2019-03-21 00:35 | PDOC ---
Documentation entered by Nati Reyes SCRIBE, acting as scribe for Pooja Green MD. Pooja Green MD: This documentation has been prepared by the Eric bernabe Adrianna, SCRIBE, under my direction and personally reviewed by me in its entirety. I confirm that the documentation accurately reflects all work, treatment, procedures, and medical decision making performed by me. History of Present Illness - General Chief Complaint: Nasal Bleeding Stated Complaint: NOSEBLEED - History of Present Illness Initial Comments: The patient is a 68 year old female, with a significant PMH of thalassemia minor , asthma, GERD, and HTN, who presents to the ED for evaluation of a nose bleed that began prior to arrival. Patient notes was in [place] this past week, which she state was a dry environment that caused her skin to feel dry and cracked. While there, she reports her nose felt full. and had dried blood whenever she blew it. After flying home earlier today, she developed a sudden onset nosebleed upon getting home from the airport. Patient states that there was so much blood (right nostril producing more than the left), and she felt as if she was choking on it. Denies any complaints at this time, and had never had a nosebleed in the past. Denies any trauma to the face, facial pain, chest pain, SOB, fever, chills, nausea, vomit, headache, or lightheadedness. Allergies: amlodipine, cortisone, levofloxacin, penicillin, aspirin, contrast dye Surgical History: Cholecystectomy Social History: Former smoker (quit 25 years ago). Denies EtOH or illicit drug use PCP: Dr. Wilson Past History - Past Medical History Allergies/Adverse Reactions: Allergies Allergy/AdvReac Type Severity Reaction Status Date / Time amlodipine Allergy Severe Difficulty Verified 07/19/18 22:30 Breathing cortisone Allergy Severe Difficulty Verified 07/19/18 22:30 Breathing levofloxacin [From Levaquin] Allergy Intermediate Rash Verified 07/19/18 22:30 Penicillins Allergy Intermediate Rash Verified 07/19/18 22:30 aspirin AdvReac Severe Verified 07/19/18 22:30 CONTRAST DYE Allergy Uncoded 07/19/18 22:30 Home Medications: Ambulatory Orders Hydrochlorothiazide [Hctz -] 25 mg PO DAILY 02/25/15 Valsartan [Diovan] 320 mg PO DAILY 02/25/15 Zafirlukast [Accolate] 20 mg PO BID 02/25/15 Anemia: Yes (THALLASEMIA MINOR) Asthma: Yes COPD: No GI Disorders: Yes (GERD) HTN: Yes - Surgical History Cholecystectomy: Yes (1968) - Psycho Social/Smoking Cessation Hx Smoking History: Former smoker Have you smoked in the past 12 months: No If you are a former smoker, when did you quit?: 25 YEARS AGO Hx Alcohol Use: Yes (SOCIAL) Drug/Substance Use Hx: No Substance Use Type: None Hx Substance Use Treatment: No Review of Systems - Review of Systems Comments:: GENERAL/CONSTITUTIONAL: No fever or chills. No weakness. HEAD, EYES, EARS, NOSE AND THROAT: +Epistaxis. No change in vision. No ear pain or discharge. No sore throat. CARDIOVASCULAR: No chest pain or shortness of breath. RESPIRATORY: No cough, wheezing, or hemoptysis. GASTROINTESTINAL: No nausea, vomiting, diarrhea or constipation. GENITOURINARY: No dysuria, frequency, or change in urination. MUSCULOSKELETAL: No joint or muscle swelling or pain. No neck or back pain. SKIN: No rash NEUROLOGIC: No headache, vertigo, loss of consciousness, or change in strength/ sensation. ENDOCRINE: No increased thirst. No abnormal weight change. HEMATOLOGIC/LYMPHATIC: No anemia, easy bleeding, or history of blood clots. ALLERGIC/IMMUNOLOGIC: No hives or skin allergy. *Physical Exam - Vital Signs Last Vital Signs Temp Pulse Resp BP Pulse Ox 97.8 F 77 18 176/100 H 100 03/20/19 22:13 03/20/19 22:13 03/20/19 22:13 03/20/19 22:13 03/20/19 22:13 - Physical Exam Comments: GENERAL: Awake, alert, and fully oriented, in no acute distress HEAD: No signs of trauma EYES: PERRLA, EOMI, sclera anicteric, conjunctiva clear ENT: Auricles normal inspection, hearing grossly normal, nares patent, oropharynx clear without exudates. Moist mucosa. No active bleeding. NECK: Normal ROM, supple, no lymphadenopathy, JVD, or masses LUNGS: Breath sounds equal, clear to auscultation bilaterally. No wheezes, and no crackles HEART: Regular rate and rhythm, normal S1 and S2, no murmurs, rubs or gallops ABDOMEN: Soft, nontender, normoactive bowel sounds. No guarding, no rebound. No masses EXTREMITIES: Normal range of motion, no edema. No clubbing or cyanosis. No cords, erythema, or tenderness NEUROLOGICAL: Cranial nerves II through XII grossly intact. Normal speech, normal gait SKIN: Warm, Dry, normal turgor, no rashes or lesions noted. Medical Decision Making - Medical Decision Making As noted above, 68-year-old woman with multiple medical problems presents with epistaxis of her right nostril which occurred just prior to her presentation in the ER. No previous history of epistaxis. Patient had just arrived home from [place]; patient noted that besides usual dry conditions there, it was unusually cold. Patient states that she had noted some dried blood in nasal secretions while there. No history of trauma or pain. Since onset of the epistaxis, she is upset but has no chest pain, shortness of breath, lightheadedness. Exam as noted: After approximately 20 minutes of effective nose pinching (patient was taught where she should be applying pressure during a nosebleed when she arrived in the ER), no further bleeding seen in either nostril. No obvious source of epistaxis in either nostril. Patient had no clots or significant blood in her oropharynx on exam. Remainder of the exam was normal. Although epistaxis appeared to be controlled after adequate pressure, since patient described significant blood flow during the acute event, packing of the right nostril is prudent to avoid recurrence when she returns home. " Rhino Rocket" 4.5 cm anterior packing device moistened with sterile water and inserted without difficulty into the right nostril. Balloon was inflated with approximately 2.5 mL of air and device taped to the right cheek. Patient tolerated procedure well. Patient was observed for short period of time; no further epistaxis or other new symptoms occurred and patient was discharged in the company of her . She will keep her head elevated tonight and keep right nostril packing device in place until seen by her ear nose and throat doctor. The patient states that she had seen ENT doctor in [place] several years ago. Since she could not remember his name and did not know if he was still in practice, referral information for as well as the [facility] given to the patient. Discharge - Discharge Information Problems reviewed: Yes Clinical Impression/Diagnosis: Epistaxis Condition: Stable Disposition: HOME - Follow up/Referral Referrals: Radha Wilson [Primary Care Provider] - Jeff London MD [Staff Physician] - 2 Days Bam Clifton MD [Staff Physician] - 2 Days - Patient Discharge Instructions Patient Printed Discharge Instructions: Nosebleed Additional Instructions: Keep head elevated tonight Keep nasal packing in place until seen by ear nose and throat doctor Continue medications as prescribed Pinch nose as instructed if any recurrent bleeding occurs Return to ER if you have persistent bleeding or experience chest pain/shortness of breath Follow-up with your nose and throat doctor (Dr. London / Dr. Etienne topete or other ENT doctor) - Post Discharge Activity
== END 2019-03-20 22:55 | disposition home or self-care (01) ==
LOC: FER 22:10
PROC: 2Y41X5Z Packing of Nasal Region using Packing Material (ICD-10-PCS; principal; 2019-03-20)
DX: R04.0 Epistaxis (principal); I10 Essential (primary) hypertension; K21.9 Gastro-esophageal reflux disease without esophagitis; D56.3 Thalassemia minor; J45.909 Unspecified asthma, uncomplicated; Z88.0 Allergy status to penicillin; Z88.8 Allergy status to other drugs, medicaments and biological substances; Z91.041 Radiographic dye allergy status; Z87.891 Personal history of nicotine dependence
CPT/HCPCS: 99281-25